=== PATIENT | male | born 1990 | race Caucasian/White ===

== ENCOUNTER 2018-05-15 13:12 | Emergency (ER) | payer OTHER ==
--- NOTE | 2018-05-15 14:12 | ED Physician Documentation ---
PD HPI SEIZURE - Stated complaint Stated Complaint: ALOC - Chief complaint Chief Complaint: Neuro - History obtained from History obtained from: Patient, Family - History of Present Illness Timing - onset: Today (27-year-old gentleman with history of what sounds like a meningioma removal in and 5 via left-sided craniotomy. He was having some seizures then and was doing well for several years but had 2 grand mal seizures back in 2009. He was maintained on an unknown antiepileptic and has not had clear seizure activity since then. He was having some odd sensations in October last year and saw his physician, he had an MRI done at [facility] on December 19 of this year showing a 1.28 mm x 19 mm transverse T2 nonenhancing focus within the left temporal lobe that was likely surgical site, no gross evidence of tumor recurrence or other abnormality. Today he had what sounds like 45-second absence seizure, the family witnessed it and he was sitting up and maintained his postural tone but was completely unresponsive and staring off into space. He was not incontinent and he did not bite his tongue. He feels fine now.) Review of Systems Ten Systems: 10 systems reviewed and negative Constitutional: denies: Fever, Chills Cardiac: denies: Chest pain / pressure, Palpitations Respiratory: denies: Dyspnea, Cough PD PAST MEDICAL HISTORY - Present Medications Home Medications: Ambulatory Orders Medication Instructions Recorded Confirmed No Known Home Medications [No 05/15/18 05/15/18 Known Home Medications] - Allergies Allergies/Adverse Reactions: Allergies Allergy/AdvReac Type Severity Reaction Status Date / Time No Known Drug Allergies Allergy Verified 05/15/18 13:20 PD ED PE NORMAL - Vitals Vital signs reviewed: Yes - General General: Alert and oriented X 3, No acute distress - HEENT HEENT: PERRL, EOMI, Other (Prior left craniotomy) - Neck Neck: Supple, no meningeal sign, No bony TTP - Cardiac Cardiac: RRR, No murmur - Respiratory Respiratory: No respiratory distress, Clear bilaterally - Abdomen Abdomen: Non tender - Neuro Neuro: Alert and oriented X 3, manager steel 2-12 intact Eye Opening: Spontaneous Motor: Obeys Commands Verbal: Oriented GCS Score: 15 - Psych Psych: Normal mood, Normal affect Results - Vitals Vitals: Vital Signs - 24 hr 05/15/18 05/15/18 13:15 14:16 Temperature 36.5 C Heart Rate 101 H 94 Respiratory 18 15 Rate Blood Pressure 155/114 H 154/92 H O2 Saturation 100 96 Oxygen O2 Source Room air PD MEDICAL DECISION MAKING - ED course ED course: 27-year-old gentleman with possible absence type seizure activity today in the setting of a remote history of epileptiform activity because of a meningioma. I spoke with Dr. Arias, the neurologist who he was going to go see in a few months who recommended against antiepileptic drugs as there has been no convincing seizure activity at this time. - Sepsis Event Vital Signs: Vital Signs - 24 hr 05/15/18 05/15/18 13:15 14:16 Temperature 36.5 C Heart Rate 101 H 94 Respiratory 18 15 Rate Blood Pressure 155/114 H 154/92 H O2 Saturation 100 96 Oxygen O2 Source Room air Departure - Departure Disposition: 01 Home, Self Care Clinical Impression: Seizure Condition: Good Record reviewed to determine appropriate education?: Yes Comments: I spoke with the neurologist in [place], Dr. Mazariegos who recommended against antiepileptic drugs at this time, he should follow-up with your primary care physician for referral to see her. Return if worsening or if new symptoms develop. As discussed he should not drive for 6 months or until cleared by the neurologist.
[2018-05-15 14:21] VITALS: BP 154/92
== END 2018-05-15 15:15 | disposition home or self-care (01) ==
LOC: ED 13:12
DX: R56.9 Unspecified convulsions (principal); Z86.69 Personal history of other diseases of the nervous system and sense organs
CPT/HCPCS: 99283; 99284

== ENCOUNTER 2020-01-24 21:04 | Outpatient (CLI) | payer OTHER | END 2020-01-24 23:59 | disposition EMS.NT | LOC: EMS 21:04 | PROVIDERS: ATTEND Surgery | DX: R56.9 Unspecified convulsions (principal) ==